=== PATIENT | male | born 1990 | race African-American/Black ===

== ENCOUNTER 2020-08-29 22:08 | Emergency (ER) | payer SELFPAY ==
[~2020-08-29] VITALS: Ht 182.9 cm; Wt 74.8 kg
[2020-08-30 03:53] VITALS: BP 123/71
== END 2020-08-30 05:18 | disposition home or self-care (01) ==
LOC: ER 22:18
DX: S80.861A Insect bite (nonvenomous), right lower leg, initial encounter (principal); N39.0 Urinary tract infection, site not specified; F17.210 Nicotine dependence, cigarettes, uncomplicated; W57.XXXA Bitten or stung by nonvenomous insect and other nonvenomous arthropods, initial encounter; Y93.89 Activity, other specified; Y92.89 Other specified places as the place of occurrence of the external cause; Y99.8 Other external cause status

== ENCOUNTER 2021-05-28 02:09 | Emergency (ER) | payer MEDICAID, OTHER ==
[~2021-05-28] VITALS: Ht 185.4 cm; Wt 76.2 kg
[2021-05-28] MEDS ORDERED: CLINDAMYCIN HCL 150 MG CAP PO ONE (04:00)
[2021-05-28] MEDS ORDERED: cefTRIAXone SOD 1,000 MG VL IM ONE (04:00)
[2021-05-28 04:36] VITALS: BP 126/72
[2021-05-28 04:44] LABS: Alcohol, Urine < 3.0 mg/dL (0-10); Amphetamine Screen, Urine POSITIVE (NEGATIVE); Barbiturate Scree,Urine NEGATIVE (NEGATIVE); Benzodiazephine Screen, Urine NEGATIVE (NEGATIVE); Cannabinoid Screen, Urine POSITIVE (NEGATIVE); Cocaine Screen, Urine NEGATIVE (NEGATIVE); Phencyclidine Screen, Urine POSITIVE (NEGATIVE)
[2021-05-28 04:52] LABS: Opiate Scree,Urine NEGATIVE (NEGATIVE)
== END 2021-05-28 05:03 | disposition home or self-care (01) ==
LOC: ER 02:09
DX: S90.821A Blister (nonthermal), right foot, initial encounter (principal); L08.9 Local infection of the skin and subcutaneous tissue, unspecified; B35.3 Tinea pedis; J45.909 Unspecified asthma, uncomplicated; F17.210 Nicotine dependence, cigarettes, uncomplicated; X58.XXXA Exposure to other specified factors, initial encounter; Y93.89 Activity, other specified; Y92.89 Other specified places as the place of occurrence of the external cause; Y99.8 Other external cause status
CPT/HCPCS: 80307; 96372; 99283; J0696

== ENCOUNTER 2021-10-25 15:24 | Emergency (ER) | payer OTHER ==
[~2021-10-25] VITALS: Ht 182.9 cm; Wt 77.1 kg
[2021-10-25 16:06] VITALS: BP 106/65
== END 2021-10-25 19:24 | disposition home or self-care (01) ==
LOC: ER 15:24
DX: S83.91XA Sprain of unspecified site of right knee, initial encounter (principal); J45.909 Unspecified asthma, uncomplicated; F17.210 Nicotine dependence, cigarettes, uncomplicated; Y04.2XXA Assault by strike against or bumped into by another person, initial encounter; Y93.89 Activity, other specified; Y92.89 Other specified places as the place of occurrence of the external cause; Y99.8 Other external cause status
CPT/HCPCS: 73562

== ENCOUNTER 2022-09-03 04:40 | Emergency (ER) | payer OTHER ==
[~2022-09-03] VITALS: Ht 182.9 cm; Wt 73.6 kg
[2022-09-03 04:58] VITALS: BP 152/63
[2022-09-03] MEDS ORDERED: KETOROLAC TROMETH 60MG/2ML VIAL IM ONE (05:30)
== END 2022-09-03 06:19 | disposition home or self-care (01) ==
LOC: ER 04:40
DX: S40.862A Insect bite (nonvenomous) of left upper arm, initial encounter (principal); F17.210 Nicotine dependence, cigarettes, uncomplicated; F12.10 Cannabis abuse, uncomplicated; W57.XXXA Bitten or stung by nonvenomous insect and other nonvenomous arthropods, initial encounter; Y93.89 Activity, other specified; Y92.89 Other specified places as the place of occurrence of the external cause; Y99.8 Other external cause status
CPT/HCPCS: 96372; 99283; J1885

== ENCOUNTER 2022-09-29 02:26 | Emergency (ER) | payer OTHER ==
[~2022-09-29] VITALS: Ht 182.9 cm; Wt 75.0 kg
[2022-09-29 02:26] VITALS: BP 125/83
== END 2022-09-29 08:06 | disposition left against medical advice (07) ==
LOC: ER 02:28
DX: Z20.2 Contact with and (suspected) exposure to infections with a predominantly sexual mode of transmission (principal); Z53.21 Procedure and treatment not carried out due to patient leaving prior to being seen by health care provider

== ENCOUNTER 2024-01-17 18:55 | Emergency (ER) | payer MEDICAID, OTHER ==
[~2024-01-17] VITALS: Ht 182.9 cm; Wt 76.3 kg
[2024-01-17 19:20] VITALS: BP 109/73; PULSE 87; RESP 17; TEMP 98
[2024-01-17 19:29] LABS: Basophils # (auto) 0 10 ^3/uL (0-0.2); Basophils % (auto) 0.3 % (0.0-2.0); Eosinophils # (auto) 0.2 10 ^3/uL (0-0.8); Eosinophils % (auto) 2.5 % (0.0-7.0); Hematocrit 43.1 % (41.0-53.0); Hemoglobin 14.1 g/dL (13.5-17.5); Lymphocytes # (auto) 3.2 10 ^3/uL (0.4-5.4); Lymphocytes % (auto) 44.1 % (10.0-50.0); Mean Corpuscular Hemoglobin 29.1 pg (28.0-32.0); Mean Corpuscular Hgb Conc. 32.6 g/dL (32.0-36.0); Mean Corpuscular Volume 89.1 fL (80.0-100.0); Monocytes # (auto) 0.6 10 ^3/uL (0-1.3); Monocytes % (auto) 8.8 % (0.0-12.0); Neutrophils # (auto) 3.2 10 ^3/uL (1.6-8.6); Neutrophils % (auto) 44.3 % (37.0-80.0); Red Blood Cells 4.84 10^6/uL (4.5-5.90); Red Cell Distribution Width 12.5 % (11.8-14.3); White Blood Cell 7.1 10^3/uL (4.4-10.8)
[2024-01-17 19:38] LABS: Alanine Aminotransferase 23 U/L (7-40); Albumin 4.3 g/dL (3.2-4.8); Alkaline Phosphatase 103 U/L (46-116); Anion Gap 5 (5-15); Aspartate Aminotransferase 30 U/L (13-40); BUN/Creatinine Ratio 9.8 (10.0-20.0); Bilirubin, Total 0.3 mg/dL (0.2-1.0); Blood Urea Nitrogen 9 mg/dL (9-23); Calcium 9.1 mg/dL (8.7-10.4); Carbon Dioxide 26 mmol/L (20-30); Chloride 109 mmol/L (98-107); Glucose 86 mg/dL (74-106); Potassium 3.9 mmol/L (3.5-5.1); Sodium 140 mmol/L (136-145); Total Protein 6.9 g/dL (5.7-8.2)
[2024-01-17 19:44] LABS: INR 1.14 (0.9-1.15); Partial Thromboplastin Time 30.2 SEC (24.5-34.5); Prothrombin Time 11.9 sec (9.3-11.8)
[2024-01-17] MEDS ORDERED: METH4PAK PO (19:50)
[2024-01-17] MEDS ORDERED: ALBUAER3 IN (19:50)
[2024-01-17] MEDS: ALBUTEROL SULF 2.5 MG/0.5ML(0.5%) NEB SOLN HHN ONE (19:53)
[2024-01-17] MEDS: IPRATROPIUM BROM 0.5 MG/2.5ML INH SOL HHN ONE (19:53)
[2024-01-17] MEDS: methylPREDNISolone SOD SUCC 125 MG/2 ML VL IM ONE (19:59)
[2024-01-17 20:06] LABS: Urine Bacteria NONE SEEN /hpf (None Seen); Urine Blood Negative /uL (Negative); Urine Clarity Clear (Clear); Urine Color Yellow (Yellow); Urine Mucus FEW (None Seen); Urine Protein, UAD Negative (Negative); Urine Specific Gravity 1.022 (1.001-1.035); Urine Urobilinogen Normal (Negative); Urine WBC <1 /hpf (0 - 3); Urine pH 6.5 (5.0-8.0)
[2024-01-17 20:37] VITALS: O2SAT 97
[2024-01-17 22:30] LABS: Amphetamine Screen, Urine Pos (NEGATIVE); Benzodiazephine Screen, Urine Neg (NEGATIVE)
[2024-01-17 22:31] LABS: Barbiturate Scree,Urine Neg (NEGATIVE); Cannabinoid Screen, Urine Pos (NEGATIVE); Cocaine Screen, Urine Neg (NEGATIVE); Opiate Scree,Urine Neg (NEGATIVE); Phencyclidine Screen, Urine Neg (NEGATIVE)
[2024-01-17] MEDS ORDERED: ALBUTEROL SULF 2.5 MG/0.5ML(0.5%) NEB SOLN NEB ONE (23:00)
== END 2024-01-17 22:56 | disposition home or self-care (01) ==
LOC: ER 18:55
DX: R07.89 Other chest pain (principal); J45.901 Unspecified asthma with (acute) exacerbation; F17.210 Nicotine dependence, cigarettes, uncomplicated; F12.10 Cannabis abuse, uncomplicated; Z79.899 Other long term (current) drug therapy
CPT/HCPCS: 36415; 71045; 80053; 80307; 81001; 83735; 83880; 84484; 85025; 85610; 85730; 93005; 94640; 96372; 99285; J2930; J7644

== ENCOUNTER 2024-01-24 18:59 | Emergency (ER) | payer MEDICAID ==
[~2024-01-24] VITALS: Ht 182.9 cm; Wt 75.0 kg
[~2024-01-24 18:59] MED LIST: ALBUAER3 IN; METH4PAK PO
[2024-01-24] MEDS: IPRATROPIUM BROM 0.5 MG/2.5ML INH SOL NEB ONE (20:00)
[2024-01-24] MEDS: ALBUTEROL SULF 2.5 MG/0.5ML(0.5%) NEB SOLN NEB ONE (20:00)
[2024-01-24] MEDS ORDERED: ALBU108A5 IN (20:41)
[2024-01-24] MEDS: DexAMETHasone SOD PHOS 10MG/1ML VIAL INJ IM ONE (22:18)
[2024-01-24 22:22] VITALS: BP 118/79; PULSE 60; RESP 12; TEMP 98; O2SAT 97
== END 2024-01-24 22:22 | disposition home or self-care (01) ==
LOC: ER 18:59
DX: J45.909 Unspecified asthma, uncomplicated (principal); F17.210 Nicotine dependence, cigarettes, uncomplicated; F15.90 Other stimulant use, unspecified, uncomplicated
CPT/HCPCS: 71046; 96372; 99283; J1100; J7644

== ENCOUNTER 2024-03-22 20:10 | Emergency (ER) | payer MEDICAID ==
[~2024-03-22] VITALS: Ht 182.9 cm; Wt 75.0 kg
[~2024-03-22 20:10] MED LIST changes: +ALBU108A5 IN
[2024-03-22 20:20] VITALS: BP 121/77; PULSE 96; RESP 16; TEMP 97.9
[2024-03-22] MEDS ORDERED: PRED20TA2 PO (21:37)
[2024-03-22] MEDS ORDERED: ZOFR4T PO (21:37)
[2024-03-22 21:45] VITALS: O2SAT 100
== END 2024-03-22 21:48 | disposition home or self-care (01) ==
LOC: ER 20:10
DX: R11.0 Nausea (principal); R14.2 Eructation; J45.909 Unspecified asthma, uncomplicated; F17.210 Nicotine dependence, cigarettes, uncomplicated; F15.90 Other stimulant use, unspecified, uncomplicated; Z88.8 Allergy status to other drugs, medicaments and biological substances; Z79.899 Other long term (current) drug therapy

== ENCOUNTER 2025-01-21 15:58 | Emergency (ER) | payer MEDICAID ==
[~2025-01-21 15:58] MED LIST changes: +PRED20TA2 PO; +ZOFR4T PO
== END 2025-01-21 16:18 | disposition left against medical advice (07) ==
LOC: ER 15:58
DX: M79.641 Pain in right hand (principal); Z53.21 Procedure and treatment not carried out due to patient leaving prior to being seen by health care provider